=== PATIENT | female | born 2000 | race Caucasian/White ===

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

== ENCOUNTER 2019-07-18 10:58 | Outpatient (CLI) | payer OTHER ==
--- NOTE | 2019-07-18 11:24 | ULT ---
ULTRASOUND ABDOMEN COMPLETE: DATE: 07/18/2019 HISTORY: 18-year-old female with abdominal pain, nausea, and emesis. FINDINGS: Gallbladder: Normal wall thickness. No gallstones or sludge identified. No pericholecystic fluid. Liver: Normal parenchymal echogenicity. Bilateral kidneys: No hydronephrosis. Pancreas: Nonspecific sonographic appearance. Common duct caliber: 2 mm. Abdominal aorta: Not imaged Inferior vena cava: Unremarkable where visualized. Spleen: No splenomegaly IMPRESSION: 1. Abdominal aorta not visualized. 2. Otherwise normal. 07/18/2019
== END 2019-07-18 10:59 | disposition home or self-care (01) ==
LOC: SCSULT 10:58 → BICULT 10:59
PROVIDERS: ATTEND Internal Medicine Gastroenterology
DX: R10.9 Unspecified abdominal pain (principal); R11.2 Nausea with vomiting, unspecified; R19.7 Diarrhea, unspecified
CPT/HCPCS: 93975